=== PATIENT | male | born 1985 | race Two or more races ===

== ENCOUNTER 2018-10-09 21:26 | Emergency (ER) | payer SELFPAY ==
[~2018-10-09] VITALS: Ht 170.2 cm; Wt 72.6 kg
--- NOTE | 2018-10-09 21:44 | NUR ---
SAÚL. C/O "FAMILY RECENTLY, BEEN DRINKING X7 DAYS, IM HERE BECAUSE I NEED HELP" -SOB AOX4. VSS.
--- NOTE | 2018-10-10 03:58 | NUR ---
pt sleeping in [place]. No signs of distress noted. Pt vital signs stable. Will cont to monitor pt.
--- NOTE | 2018-10-10 06:44 | NUR ---
Patient is resting comfortably in bed with eyes closed. Easily aroused. VSS. USED RESTROOM WITH ASSISTANCE.
[2018-10-10 11:15] VITALS: BP 138/95
--- NOTE | 2018-10-10 11:28 | NUR ---
Patient discharged to home in stable condition. Written and verbal after care instructions given. Patient verbalizes understanding of instruction. Pt picked up by father. Pt. ambulatory with steady gait
== END 2018-10-10 11:29 | disposition home or self-care (01) ==
LOC: ER 21:28
DX: F10.229 Alcohol dependence with intoxication, unspecified (principal); I10 Essential (primary) hypertension; E11.9 Type 2 diabetes mellitus without complications; Y90.9 Presence of alcohol in blood, level not specified